=== PATIENT | male | born 1995 | race Caucasian/White ===

== ENCOUNTER 2024-08-29 08:04 | Emergency (ER) | payer SELFPAY ==
[~2024-08-29] VITALS: Ht 177.8 cm; Wt 104.3 kg
[2024-08-29 08:08] VITALS: O2SAT 99
[2024-08-29] MEDS: MORPHINE SULFATE 4 MG/ML INJ (FOR IV/IM USE) IV ONE (08:30)
[2024-08-29] MEDS: LACTATED RINGERS 1,000 ML IV SCH (08:31)
[2024-08-29 08:46] LABS: BASOPHILS % 0.5 % (0.0-2.0); EOSINOPHILS % 1.7 % (0.0-5.0); HEMATOCRIT. 44.7 % (42.0-52.0); HEMOGLOBIN. 14.7 g/dL (14.0-18.0); LYMPHOCYTES % 31.6 % (20.0-50.0); MEAN CORPUSCULAR HEMOGLOBIN 32.1 pg (28.0-32.0); MEAN CORPUSCULAR HGB CONC 32.9 g/dL (31.0-37.0); MEAN CORPUSCULAR VOLUME 97.8 fL (80.0-94.0); MEAN PLATELET VOLUME 8.6 fl (7.4-10.4); MONOCYTES % 6.5 % (2.0-8.0); NEUTROPHILS % 59.7 % (40.0-76.0); PLATELET 278 x1000/uL (130-400); RED BLOOD CELL COUNT 4.57 mill/uL (4.7-6.1); RED CELL DISTRIBUTION WIDTH 14.7 % (11.6-14.6); WHITE BLOOD COUNT 9.5 x1000/uL (4.5-11.0)
[2024-08-29 08:47] LABS: CHLORIDE 107 mEq/L (98-107); POTASSIUM 4.3 mEq/L (3.5-5.1); SODIUM 139 mEq/L (136-145)
[2024-08-29 08:48] LABS: CARBON DIOXIDE 22 mEq/L (21-32)
[2024-08-29 08:53] LABS: CREATININE 0.9 mg/dL (0.6-1.3); GLUCOSE 110 mg/dL (70-105); UREA NITROGEN BLOOD 9 mg/dL (9-23)
[2024-08-29 08:55] LABS: ALANINE AMINOTRANSFERASE 25 IU/L (10-49); ALBUMIN 4.3 g/dL (3.2-4.8); ASPARTATE AMINOTRANSFERASE 20 IU/L (<34); BILIRUBIN DIRECT < 0.1 mg/dL (<=3.0); BILIRUBIN TOTAL 0.4 mg/dL (0.1-1.0); PROTEIN TOTAL 7.4 g/dL (6.0-8.3)
[2024-08-29] MEDS ORDERED: KETO10TA2 MT (09:26)
[2024-08-29] MEDS ORDERED: ONDA-239 PO (09:26)
[2024-08-29 09:45] VITALS: BP 114/69; PULSE 57; RESP 25; TEMP 36.9; O2SAT 99
== END 2024-08-29 09:53 | disposition home or self-care (01) ==
LOC: ER 09:28
DX: R10.9 Unspecified abdominal pain (principal)
CPT/HCPCS: 80076; 80048; 83690; 85025; 86850; 86900; 86901; 36415; 74176; 96361; 96374; 99285; J2270; Z7610

== ENCOUNTER 2024-09-16 06:59 | Emergency (ER) | payer MEDICAID, OTHER ==
[~2024-09-16] VITALS: Ht 177.8 cm; Wt 100.0 kg
[~2024-09-16 06:59] MED LIST: KETO10TA2 MT; ONDA-239 PO
[2024-09-16 07:18] VITALS: O2SAT 100
[2024-09-16] MEDS: ACETAMINOPHEN 325MG TABLET PO ONE (07:46)
[2024-09-16 09:17] VITALS: BP 129/72; PULSE 63; RESP 18; TEMP 37; O2SAT 99
== END 2024-09-16 09:21 | disposition home or self-care (01) ==
LOC: ER 06:59
DX: S09.8XXA Other specified injuries of head, initial encounter (principal); M79.671 Pain in right foot; M25.521 Pain in right elbow; M79.641 Pain in right hand; R51.9 Headache, unspecified; Y08.89XA Assault by other specified means, initial encounter; Y93.89 Activity, other specified; Y92.89 Other specified places as the place of occurrence of the external cause; Y99.8 Other external cause status
CPT/HCPCS: 99284; 29515; 70450; 73080; 73130; 73630; A6449